=== PATIENT | male | born 1965 | race Two or more races ===

== ENCOUNTER 2022-03-04 04:23 | Day surgery (SDC) | payer OTHER ==
[2022-03-03 11:02] VITALS: BMI 30.4
[2022-03-04 09:39] VITALS: RESP 18; TEMP 97.2
[2022-03-04 10:11] VITALS: PULSE 61
[2022-03-04 13:52] VITALS: BP 122/76
== END 2022-03-04 10:20 | disposition home or self-care (01) ==
LOC: JASU-ENDO 04:23
PROVIDERS: ATTEND Internal Medicine Gastroenterology
PROC: 0DJD8ZZ Inspection of Lower Intestinal Tract, Via Natural or Artificial Opening Endoscopic (ICD-10-PCS; principal; 2022-03-04 08:30)
DX: Z12.11 Encounter for screening for malignant neoplasm of colon (principal); I10 Essential (primary) hypertension
CPT/HCPCS: 82962